=== PATIENT | female | born 1985 | race Caucasian/White ===

== ENCOUNTER 2016-11-11 00:12 | Emergency (ER) | payer BC ==
[2016-11-11 00:25] VITALS: BP 139/67
[2016-11-11 01:34] LABS: Hematocrit 33 % (35-47); Hemoglobin 11.4 g/dl (12.0-16.0); Mean Corpuscular HGB Conc 34 g/dl (31-36); Mean Corpuscular Hemoglobin 31 pg (27-31); Mean Corpuscular Volume 91 fL (80-97); Mean Platelet Volume 9 um3 (7.4-10.4); Red Blood Count 3.69 10^6/ul (4.0-5.4); Red Cell Distribution Width 13 % (10.5-15); White Blood Count 11.1 10^3/ul (3.5-10.8)
[2016-11-11 01:53] LABS: Albumin 4.1 g/dL (3.2-5.2); C Reactive Protein 2.22 mg/L (< 5.00); Calcium 9.4 mg/dL (8.6-10.3); EGFR African American 175.4 (>60); EGFR Non-African American 136.4 (>60); Potassium 3.6 mmol/L (3.5-5.0); Total Bilirubin 0.2 mg/dL (0.2-1.0); Total Protein 7.1 g/dL (6.4-8.9)
[2016-11-11 03:00] LABS: Urine Bacteria 1+ (Absent); Urine Bilirubin Negative (Negative); Urine Glucose Negative (Negative); Urine Nitrite Negative (Negative)
--- NOTE | 2016-11-11 03:52 | ED ---
Morro De Oliveira Adam, scribed for Riki Smith MD on 11/11/16 at 0124 . - HPI Summary HPI Summary: Pt is a 31 year old female presenting with vaginal bleeding that set on 20 minutes BE[facility] FILLER at the ED. Pt is 12 weeks into her first . She states that she has been having spotting throughout the but nothing as heavy as the bleeding today. She also c/o abdominal cramping over the past week. She denies any urinary symptoms. Pt had an US done today at [facility] in [place] and everything was normal, according to the pt. - History of Current Complaint Chief Complaint: EDVaginalBleeding Stated Complaint: 12 WEEKS PREG NOW BLEEDING Time Seen by Provider: 11/11/16 00:34 Hx Obtained From: Patient Chief Complaint: Vaginal Bleeding Onset/Duration: Started Minutes Ago, Atraumatic, Still Present Timing: Constant Severity: Moderate Current Severity: Moderate Location of Pain: Diffuse Character: Cramping Aggravating Factors: Nothing Alleviating Factors: Nothing Associated Signs and Symptoms: Positive: Vaginal Bleeding or Discharge - Assessment Hx Now: No - Allergies/Home Medications Allergies/Adverse Reactions: Allergies Allergy/AdvReac Type Severity Reaction Status Date / Time Penicillins [PCN] Allergy Unknown Verified 11/11/16 00:21 Reaction Details PMH/Surg Hx/FS Hx/Imm Hx Endocrine/Hematology History: Denies: Hx Diabetes, Hx Thyroid Disease Cardiovascular History: Denies: Hx Hypertension Respiratory History: Denies: Hx Asthma, Hx Chronic Obstructive Pulmonary Disease (COPD) GI History: Denies: Hx Ulcer Infectious Disease History: No Infectious Disease History: Denies: Hx Hepatitis, Hx Human Immunodeficiency Virus (HIV), Traveled Outside the in Last 30 Days - Family History Known Family History: Positive: None - Patient denies - Social History Occupation: Employed Full-time Lives: With Family - Hx Substance Use: No Substance Use Type: Reports: None Review of Systems Positive: Abdominal Pain - Cramping Positive: other - Vaginal bleeding. Negative: dysuria All Other Systems Reviewed And Are Negative: Yes Physical Exam - Physical Exam Triage Information Reviewed: Yes Vital Signs Reviewed: Yes Appearance: Positive: Well-Appearing, No Pain Distress Skin: Positive: Warm, Skin Color Reflects Adequate Perfusion, Dry Head/Face: Positive: Normal Head/Face Inspection Eyes: Positive: EOMI, RAMONA ENT: Positive: Normal ENT inspection Neck: Positive: Supple, Nontender Respiratory/Lung Sounds: Positive: Clear to Auscultation, Breath Sounds Present Cardiovascular: Positive: RRR Abdomen Description: Positive: Nontender, Soft Bowel Sounds: Positive: Present Musculoskeletal: Positive: Normal, Strength/ROM Intact Neurological: Positive: Normal, Sensory/Motor Intact, Alert, Oriented to Person Place, Time Psychiatric: Positive: Affect/Mood Appropriate Diagnostics - Vital Signs Vital Signs Temp Pulse Resp BP Pulse Ox 11/11/16 00:21 99.1 F 101 18 139/67 100 - Laboratory Lab Results: Lab Results 11/11/16 11/11/16 11/11/16 Range/Units 01:20 01:20 01:20 WBC 11.1 H (3.5-10.8) 10^3/ul RBC 3.69 L (4.0-5.4) 10^6/ul Hgb 11.4 L (12.0-16.0) g/dl Hct 33 L (35-47) % MCV 91 (80-97) fL MCH 31 (27-31) pg MCHC 34 (31-36) g/dl RDW 13 (10.5-15) % Plt Count 200 (150-450) 10^3/ul MPV 9 (7.4-10.4) um3 Neut % (Auto) 64.4 (38-83) % Lymph % (Auto) 25.4 (25-47) % [place] % (Auto) 7.8 (1-9) % Eos % (Auto) 1.6 (0-6) % Baso % (Auto) 0.8 (0-2) % Absolute Neuts (auto) 7.2 (1.5-7.7) 10^3/ul Absolute Lymphs (auto) 2.8 (1.0-4.8) 10^3/ul Absolute Monos (auto) 0.9 H (0-0.8) 10^3/ul Absolute Eos (auto) 0.2 (0-0.6) 10^3/ul Absolute Basos (auto) 0.1 (0-0.2) 10^3/ul Absolute Nucleated RBC 0.02 10^3/ul Nucleated RBC % 0.1 INR (Anticoag Therapy) 0.86 L (0.89-1.11) APTT 27.6 (26.0-36.3) seconds Sodium 134 (133-145) mmol/L Potassium 3.6 (3.5-5.0) mmol/L Chloride 104 (101-111) mmol/L Carbon Dioxide 24 (22-32) mmol/L Anion Gap 6 (2-11) mmol/L BUN 9 (6-24) mg/dL Creatinine 0.53 (0.51-0.95) mg/dL Est GFR ( Amer) 175.4 (>60) Est GFR (Non-Af Amer) 136.4 (>60) BUN/Creatinine Ratio 17.0 (8-20) Glucose 90 (70-100) mg/dL Calcium 9.4 (8.6-10.3) mg/dL Total Bilirubin 0.20 (0.2-1.0) mg/dL AST 17 (13-39) U/L ALT 12 (7-52) U/L Alkaline Phosphatase 38 (34-104) U/L C-Reactive Protein 2.22 (< 5.00) mg/L Total Protein 7.1 (6.4-8.9) g/dL Albumin 4.1 (3.2-5.2) g/dL Globulin 3.0 (2-4) g/dL Albumin/Globulin Ratio 1.4 (1-3) Beta HCG, Quant 87617.00 mIU/mL Urine Color Urine Appearance Urine pH (5-9) Ur Specific [place] (1.010-1.030) Urine Protein (Negative) Urine Ketones (Negative) Urine Blood (Negative) Urine Nitrate (Negative) Urine Bilirubin (Negative) Urine Urobilinogen (Negative) Ur Leukocyte Esterase (Negative) Urine WBC (Auto) (Absent) Urine RBC (Auto) (Absent) Ur Squamous Epith Cells (Absent) Urine Bacteria (Absent) Urine Glucose (Negative) 11/11/16 Range/Units 02:45 WBC (3.5-10.8) 10^3/ul RBC (4.0-5.4) 10^6/ul Hgb (12.0-16.0) g/dl Hct (35-47) % MCV (80-97) fL MCH (27-31) pg MCHC (31-36) g/dl RDW (10.5-15) % Plt Count (150-450) 10^3/ul MPV (7.4-10.4) um3 Neut % (Auto) (38-83) % Lymph % (Auto) (25-47) % [place] % (Auto) (1-9) % Eos % (Auto) (0-6) % Baso % (Auto) (0-2) % Absolute Neuts (auto) (1.5-7.7) 10^3/ul Absolute Lymphs (auto) (1.0-4.8) 10^3/ul Absolute Monos (auto) (0-0.8) 10^3/ul Absolute Eos (auto) (0-0.6) 10^3/ul Absolute Basos (auto) (0-0.2) 10^3/ul Absolute Nucleated RBC 10^3/ul Nucleated RBC % INR (Anticoag Therapy) (0.89-1.11) APTT (26.0-36.3) seconds Sodium (133-145) mmol/L Potassium (3.5-5.0) mmol/L Chloride (101-111) mmol/L Carbon Dioxide (22-32) mmol/L Anion Gap (2-11) mmol/L BUN (6-24) mg/dL Creatinine (0.51-0.95) mg/dL Est GFR ( Amer) (>60) Est GFR (Non-Af Amer) (>60) BUN/Creatinine Ratio (8-20) Glucose (70-100) mg/dL Calcium (8.6-10.3) mg/dL Total Bilirubin (0.2-1.0) mg/dL AST (13-39) U/L ALT (7-52) U/L Alkaline Phosphatase (34-104) U/L C-Reactive Protein (< 5.00) mg/L Total Protein (6.4-8.9) g/dL Albumin (3.2-5.2) g/dL Globulin (2-4) g/dL Albumin/Globulin Ratio (1-3) Beta HCG, Quant mIU/mL Urine Color Straw Urine Appearance Clear Urine pH 5.0 (5-9) Ur Specific [place] 1.009 L (1.010-1.030) Urine Protein Negative (Negative) Urine Ketones Negative (Negative) Urine Blood 1+ H (Negative) Urine Nitrate Negative (Negative) Urine Bilirubin Negative (Negative) Urine Urobilinogen Negative (Negative) Ur Leukocyte Esterase Negative (Negative) Urine WBC (Auto) Trace(0-5/hpf) (Absent) Urine RBC (Auto) Trace(0-2/hpf) (Absent) Ur Squamous Epith Cells Present H (Absent) Urine Bacteria 1+ H (Absent) Urine Glucose Negative (Negative) Result Diagrams: 11/11/16 01:20 11/11/16 01:20 Lab Statement: Any lab studies that have been ordered have been reviewed, and results considered in the medical decision making process. - Additional Comments Diagnostic Additional Comments: Ultrasound - IMPRESSION: SINGLE LIVE INTRAUTERINE GESTATION OF APPROXIMATELY 12 WEEKS 3 DAYS. MODERATE SIZE SUBCHORIONIC HEMORRHAGE SEEN ANTERIOR AND INFERIOR TO THE GESTATIONAL SAC ABOVE. Course/Dx - Course Assessment/Plan: BLOOD TYPE O POSITIVE. DISCUSSED RESULTS WITH PATIENT. DECREASED BLEEDING IN ED. DISCHARGE HOME STABLE. - Diagnoses Provider Diagnoses: Vaginal bleeding in patient at less than 20 weeks gestation Discharge - Discharge Plan Condition: Stable Disposition: HOME Patient Education Materials: Threatened Miscarriage (ED) Additional Instructions: FOLLOW UP WITH YOUR OBGYN. PELVIC REST UNTIL CLEARED BY OBGYN. CALL THIS MORNING FOR FOLLOW UP. RETURN TO THE EMERGENCY DEPARTMENT FOR ANY WORSENING OF YOUR CONDITION OR QUESTIONS OR CONCERNS. The documentation as recorded by the Morro nieto Adam accurately reflects the service I personally performed and the decisions made by me, Riki Smith MD.
--- NOTE | 2016-11-11 08:15 | RAD ---
Indication: , vaginal bleeding. COMPARISON: There are no prior studies available for comparison. TECHNIQUE: Multiple real-time transvaginal images of the pelvis were obtained. FINDINGS: This exam demonstrates an early intrauterine . A first trimester fetus is identified. The heart rate was 152 bpm. The crown rump length measured 5.9 cm corresponding to an estimated gestational age of 12 weeks 3 days. The cervix measured 3.0 cm in length. There is a crescent-shaped area of decreased echogenicity present inferior to the gestational sac located anterior measuring at least 3.1 x 1.4 x 2.3 cm most consistent with a perigestational hematoma. The right ovary measured 2.5 x 2.7 x 1.7 cm. The left ovary measured 2.9 x 2.9 x 1.9 cm. No free intraperitoneal fluid is seen. IMPRESSION: INTRAUTERINE WITH AN ESTIMATED GESTATIONAL AGE OF 12 WEEKS 3 DAYS. THERE IS A MODERATE SIZE SUBCHORIONIC HEMORRHAGE PRESENT.
== END 2016-11-11 04:07 | disposition home or self-care (01) ==
LOC: ED 00:12
DX: O46.91 Antepartum hemorrhage, unspecified, first trimester (principal); Z3A.12 12 weeks gestation of pregnancy
CPT/HCPCS: 36415; 76801; 80053; 81003; 81015; 84702; 85025; 85610; 85730; 86140; 87086; 99282

== ENCOUNTER 2017-05-26 07:36 | Inpatient (IN) | payer BC ==
[2017-05-26] MEDS ORDERED: Promethazine INJ(RESTRICTED)* 25 MG/ML 1 ML VIAL IV ONE (09:30)
[2017-05-26] MEDS ORDERED: Morphine INJ* 10 MG/ML 1 ML SYRINGE IV PRN (09:30)
[2017-05-26 20:33] LABS: Hematocrit 37 % (35-47); Hemoglobin 12.2 g/dl (12.0-16.0); Mean Corpuscular HGB Conc 33 g/dl (31-36); Mean Corpuscular Hemoglobin 31 pg (27-31); Mean Corpuscular Volume 95 fL (80-97); Mean Platelet Volume 11 um3 (7.4-10.4); Red Cell Distribution Width 14 % (10.5-15); White Blood Count 11.3 10^3/ul (3.5-10.8)
[2017-05-26] MEDS ORDERED: OBEPIDURAL* 250 ML ONE (21:48)
[2017-05-26] MEDS ORDERED: Famotidine TAB* 20 MG PO PRN (22:27)
[2017-05-26] MEDS ORDERED: Phenylephrine IV* 40 MCG/ML 10 ML SYRINGE IV PUSH PRN ×2 (22:27)
[2017-05-26] MEDS ORDERED: Sodium Citrate/Citric Acid* 15 ML UDC PO PRN (22:27)
[2017-05-26] MEDS ORDERED: OBEPIDURAL* 250 ML EPIDURAL SCH (23:00)
[2017-05-26] MEDS ORDERED: Oxytocin in LR* 20 UNITS/1,000 ML BAG IVPB ONE (23:22)
[2017-05-26] MEDS ORDERED: Oxytocin in LR* 20 UNITS/1,000 ML BAG IVPB SCH (23:45)
[2017-05-27] MEDS ORDERED: Acetaminophen TAB* 325 MG PO PRN (05:23)
[2017-05-27] MEDS ORDERED: Glycerin ADULT SUPP PR PRN (05:23)
[2017-05-27] MEDS ORDERED: oxyCODONE/Acetamin 5/325 MG* TAB PO PRN (05:23)
[2017-05-27] MEDS ORDERED: Dibucaine 1% 28.35 GM TUBE PR PRN (05:23)
[2017-05-27] MEDS ORDERED: Witch Hazel PAD* JAR TOPICAL PRN (05:23)
[2017-05-27] MEDS ORDERED: Oxytocin in LR* 20 UNITS/1,000 ML BAG IVPB SCH (06:00)
[2017-05-27] MEDS: Docusate CAP* 100 MG PO SCH ×3 (08:33→21:01)
[2017-05-27] MEDS: Ibuprofen TAB* 600 MG PO PRN ×3 (08:34→21:01)
[2017-05-27] MEDS: Simethicone CHEW TAB* 80 MG PO SCH ×3 (08:34→19:04)
[2017-05-28] MEDS: Ibuprofen TAB* 600 MG PO PRN ×3 (03:24→21:19)
[2017-05-28 07:13] LABS: Hematocrit 28 % (35-47); Hemoglobin 9.3 g/dl (12.0-16.0); Mean Corpuscular HGB Conc 34 g/dl (31-36); Mean Corpuscular Hemoglobin 32 pg (27-31); Mean Corpuscular Volume 95 fL (80-97); Mean Platelet Volume 10 um3 (7.4-10.4); Red Blood Count 2.93 10^6/ul (4.0-5.4); Red Cell Distribution Width 14 % (10.5-15); White Blood Count 19.4 10^3/ul (3.5-10.8)
[2017-05-28] MEDS: Docusate CAP* 100 MG PO SCH ×3 (08:41→21:19)
[2017-05-28] MEDS: Ferrous Gluconate TAB* 324 MG TAB PO SCH ×2 (08:41→21:19)
[2017-05-28 19:51] VITALS: BP 119/65
[2017-05-29] MEDS: Ibuprofen TAB* 600 MG PO PRN (06:23)
[2017-05-29] MEDS: Ferrous Gluconate TAB* 324 MG TAB PO SCH (08:58)
[2017-05-29] MEDS: Docusate CAP* 100 MG PO SCH (08:58)
== END 2017-05-29 11:00 | disposition home or self-care (01) | DRG 560 ==
LOC: MCHOBOUT 07:36 → MCHOB 21:14
PROVIDERS: ADMIT Midwife; ATTEND Midwife
PROC: 10E0XZZ Delivery of Products of Conception, External Approach (ICD-10-PCS; principal; 2017-05-27)
PROC: 10907ZC Drainage of Amniotic Fluid, Therapeutic from Products of Conception, Via Natural or Artificial Opening (ICD-10-PCS; 2017-05-27)
PROC: 0HQ9XZZ Repair Perineum Skin, External Approach (ICD-10-PCS; 2017-05-27)
DX: O48.0 Post-term pregnancy (principal); D64.9 Anemia, unspecified; O69.89X0 Labor and delivery complicated by other cord complications, not applicable or unspecified; O70.0 First degree perineal laceration during delivery; O90.81 Anemia of the puerperium; Z3A.40 40 weeks gestation of pregnancy; Z37.0 Single live birth; Z88.0 Allergy status to penicillin
CPT/HCPCS: 36415; 85025; 86850; 86900; 86901; A9270-GY; J2270; J2550